=== PATIENT | male | born 1970 | race Caucasian/White ===

== ENCOUNTER 2020-02-05 08:10 | Outpatient (CLI) | payer MEDICAID, OTHER ==
[2020-02-05] MEDS ORDERED: TRAM50TA2 PO (14:51)
[2020-02-05] MEDS ORDERED: LISI-167 PO (14:51)
[2020-02-05] MEDS ORDERED: METF10007 PO (14:51)
[2020-02-05] MEDS ORDERED: LEVO137T3 PO (14:51)
[2020-02-05] MEDS ORDERED: OMEP40CA42 PO (14:51)
== END 2020-02-05 23:59 | disposition home or self-care (01) ==
LOC: STAR 08:10
PROVIDERS: ATTEND Internal Medicine
DX: Z01.818 Encounter for other preprocedural examination (principal); K85.90 Acute pancreatitis without necrosis or infection, unspecified
CPT/HCPCS: 36415; 82947; 93005

== ENCOUNTER → 2020-02-07 | Outpatient (CLI) | payer OTHER ==
[~2020-02-07] MED LIST: LEVO137T3 PO; LISI-167 PO; METF10007 PO; OMEP40CA42 PO; TRAM50TA2 PO
== END | disposition home or self-care (01) ==
LOC: STAR 11:40
PROVIDERS: ATTEND Anesthesiology
DX: Z01.812 Encounter for preprocedural laboratory examination (principal); Z20.828 Contact with and (suspected) exposure to other viral communicable diseases
CPT/HCPCS: 36415; 87635

== ENCOUNTER 2020-02-11 11:39 | Day surgery (SDC) | payer MEDICAID, OTHER ==
[~2020-02-11] VITALS: Ht 177.8 cm; Wt 85.0 kg
[2020-02-11] MEDS ORDERED: LACTATED RINGERS 1,000 ML IV SCH (11:45)
[2020-02-11] MEDS ORDERED: CHLORHEXIDINE 15 ML UDC MM STA (11:47)
[2020-02-11] MEDS ORDERED: CHLORHEXIDINE 15 ML UDC ONE (11:52)
[2020-02-11] MEDS ORDERED: MIDAZOLAM 1 MG/ML, 2ML ONE (12:47)
[2020-02-11] MEDS ORDERED: FENTANYL PF 100 MCG/2ML ONE (12:48)
[2020-02-11 13:00] LABS: ALANINE AMINOTRANSFERASE 57 U/L (12-78); ALBUMIN 4.1 g/dL (3.4-5.0); ANION GAP 4 mmol/L (5-15); CALCIUM 9.5 mg/dL (8.5-10.1); CHLORIDE 104 mmol/L (98-107); CREATININE 0.96 mg/dL (0.7-1.3)
[2020-02-11 13:03] LABS: ALKALINE PHOSPHATASE 84 U/L (45-117); BILIRUBIN,TOTAL 0.9 mg/dL (0.2-1.0)
[2020-02-11] MEDS ORDERED: PROPOFOL 50 ML ONE (13:25)
[2020-02-11] MEDS ORDERED: HYDROmorphone 1 MG/ML, 1ML INJ IVPush PRN (13:30)
[2020-02-11] MEDS ORDERED: PROMETHAZINE 25 MG/ML, 1ML IVPush PRN (13:30)
[2020-02-11] MEDS ORDERED: FENTANYL PF 100 MCG/2ML IV PRN (13:30)
[2020-02-11] MEDS ORDERED: ONDANSETRON 2MG/ML, 2ML IVPush ONE (13:30)
== END 2020-02-11 16:05 | disposition home or self-care (01) ==
LOC: OUT 11:39
PROVIDERS: ATTEND Internal Medicine
DX: K85.91 Acute pancreatitis with uninfected necrosis, unspecified (principal); K21.9 Gastro-esophageal reflux disease without esophagitis; I10 Essential (primary) hypertension; E11.9 Type 2 diabetes mellitus without complications; F41.9 Anxiety disorder, unspecified; Z88.1 Allergy status to other antibiotic agents
CPT/HCPCS: 36415; 43242; 80053; 88307; J2250; J2704; J3010; J7120